=== PATIENT | male | born 1935 | race African-American/Black ===

== ENCOUNTER 2016-11-09 08:27 | Outpatient (CLI) | payer MEDICARE ==
[2016-11-09] MEDS ORDERED: NACL ONE (09:00)
--- NOTE | 2016-11-10 12:01 | Cat Scan Report ---
CT ABDOMEN WITH AND WITHOUT CONTRAST History: Hepatocellular carcinoma Technique: Helical CT before and after IV contrast. Three-phase liver protocol. Comparison: 09/05/16. Findings: The large hypervascular enhancing mass in the right hepatic lobe has increased in size slightly since 09/05/16. The mass has increased from 7.6 x 6.1 cm to 7.8 x 6.5 cm. There are approximately 9 or 10 small rounded satellite nodules surrounding this right hepatic lobe mass. The largest nodule measures 2.0 cm which has increased from 1.7 cm on the previous exam. There appear to be 1 or 2 new subcentimeter enhancing nodules in the right lobe. These masses also demonstrate early washout on the delayed images. There is 20% internal cystic change. No calcifications. The biliary system, pancreas, spleen and adrenal glands are unremarkable. There are multiple bilateral renal cysts. The largest cyst measures 6.7 cm in the mid right kidney. An exophytic cyst from the superior pole of the right kidney measures 4.5 cm. The largest cyst in the left kidney measures 2.4 cm. No renal mass, calcification or hydronephrosis. Multiple small bowel loops demonstrate mild circumferential thickening which could be related to an enteritis. There is no evidence for obstruction, ascites, free air or abscess. Normal appendix. Heart size is normal. The visualized lung bases are clear no suspicious bony lesion. Impression: Mild progression of disease is demonstrated since 09/05/16 exam. The dominant mass in the right hepatic lobe has increased slightly as described. There are 9 or 10 small satellite nodules surrounding the dominant mass. A couple of these appear to be new. The enhancement pattern of this mass is consistent with hepatocellular carcinoma. Mild diffuse small bowel wall thickening suggesting a mild enteritis. Bilateral renal cysts.
== END 2016-11-09 08:28 | disposition home or self-care (01) ==
LOC: CT 08:27
PROVIDERS: ATTEND Radiology Vascular & Interventional Radiology
DX: C22.0 Liver cell carcinoma (principal); N28.1 Cyst of kidney, acquired; D72.829 Elevated white blood cell count, unspecified
CPT/HCPCS: 74170; Q9967

== ENCOUNTER 2016-12-23 05:53 | Observation (INO) | payer MEDICARE ==
[2016-12-23 06:32] LABS: Basophils % (Auto) 0.7 % (0.0-1.8); Eosinophils % (Auto) 6.6 % (0.0-4.3); Hematocrit 40.3 % (35.5-45.6); Hemoglobin 13.6 gm/dl (11.8-15.2); Mean Corpuscular HGB Conc 34 % (32-34); Mean Corpuscular Hemoglobin 32 pg (28-32); Mean Corpuscular Volume 96 fl (84-94); Platelet Count 225 K/mm3 (140-440); Red Blood Count 4.22 M/mm3 (3.65-5.03); Red Cell Distribution Width 14.6 % (13.2-15.2); White Blood Count 8.4 K/mm3 (4.5-11.0)
[2016-12-23 07:05] LABS: BUN/Creatinine Ratio 10.83; INR 0.94 (0.87-1.13); Potassium 4.4 mmol/L (3.6-5.0)
[2016-12-23 07:06] LABS: Partial Thromboplastin Time 30.3 Sec. (24.2-36.6)
[2016-12-23] MEDS ORDERED: D50W (25GM) IV ONE ×2 (07:10→07:30)
[2016-12-23] MEDS ORDERED: XYLOCAINE 1%/ EPI 1:100,000 INFILTRATI ONE (07:10)
[2016-12-23] MEDS ORDERED: NACL 0.9% 1000 ML 1,000 ML ONE (07:10)
[2016-12-23] MEDS ORDERED: NACL 0.9% 500 ML IR ONE (07:10)
[2016-12-23] MEDS ORDERED: SUBLIMAZE ONE (07:10)
[2016-12-23] MEDS ORDERED: VERSED ONE (07:10)
[2016-12-23] MEDS ORDERED: ANCEF/STERILE WATER 2 GM/20 ML 2 GM/20 ML SYRINGE IV ONE (07:11)
[2016-12-23] MEDS ORDERED: ZOFRAN IV PRN (07:25)
[2016-12-23] MEDS ORDERED: BENADRYL ONE (07:31)
--- NOTE | 2016-12-23 07:46 | History and Physical Report ---
History of Present Illness Date of examination: 12/23/16 Date of admission: 12/23/16 Chief complaint: Liver Mass History of present illness: Patient with known large hepatocelluar carcinoma. S/P chemoembolization procedure. Observation for pain control Past History Past Medical History: arthritis, CAD, diabetes, hepatitis, hypertension, other ( gout) Past Surgical History: No surgical history Social history: no significant social history Family history: no significant family history Medications and Allergies Allergies Allergy/AdvReac Type Severity Reaction Status Date / Time No Known Allergies Allergy Unverified 12/23/14 08:34 Home Medications Medication Instructions Recorded Confirmed Last Taken Type Colesevelam [Welchol] 3 tab PO BID 11/25/16 12/23/16 12/22/16 History Entecavir 0.5 mg PO DAILY 11/25/16 12/23/16 12/22/16 History Lisinopril [Zestril TAB] 20 mg PO DAILY 11/25/16 12/23/16 12/22/16 History Mirabegron [Myrbetriq] 25 mg PO QDAY 11/25/16 12/23/16 12/22/16 History Sorafenib Tosylate [Nexavar] 2 tab PO BID 11/25/16 12/23/16 12/22/16 History Colchicine [Colcrys] 0.6 mg PO BID 12/23/16 12/23/16 12/22/16 History Donepezil [Aricept] 5 mg PO QDAY 12/23/16 12/23/16 12/22/16 History Esomeprazole Magnesium [NexIUM] 40 mg PO DAILY 12/23/16 12/23/16 12/22/16 History Finasteride [Proscar] 5 mg PO QDAY 12/23/16 12/23/16 12/22/16 History Insulin Detemir [Levemir Flextouch] 14 units SC QHS 12/23/16 12/23/16 12/22/16 History Linagliptin [Tradjenta] 5 mg PO QDAY 12/23/16 12/23/16 12/22/16 History Tamsulosin [Flomax] 0.4 mg PO QDAY 12/23/16 12/23/16 12/22/16 History Active Meds: Active Medications Colchicine (Colcrys) 0.6 mg PO BID [facility] Colesevelam HCl (Welchol) mg PO BID [facility] Finasteride (Proscar) 5 mg PO QDAY [facility] DOXORUBICIN LC BEADS (Doxorubicin Lc Beads) 2 mls @ 24 mls/hr INTRA-LEDA ONCE ONE Stop: 12/23/16 08:04 Metronidazole (Flagyl 500 Mg/100 Ml) 500 mg in 100 mls @ 200 mls/hr IV PREOP NR Stop: 12/23/16 08:29 Sodium Chloride (Nacl 0.9% 1000 Ml) 1,000 mls @ 125 mls/hr IV DIRECT [facility] Insulin Detemir (Levemir) 14 units SUB-Q QHS [facility] Linagliptin (Tradjenta) 5 mg PO QDAY [facility] Lisinopril (Zestril) 20 mg PO DAILY [facility] Miscellaneous Medication (Donepezil [Aricept]) 5 mg PO QDAY [facility] Miscellaneous Medication (Entecavir [Entecavir]) 0.5 mg PO DAILY [facility] Miscellaneous Medication (Esomeprazole Magnesium [Nexium]) 40 mg PO DAILY [facility] Miscellaneous Medication (Mirabegron [Myrbetriq]) 25 mg PO QDAY [facility] Miscellaneous Medication (Sorafenib Tosylate [Nexavar]) 2 tab PO BID [facility] Miscellaneous Medication (Tamsulosin [Flomax]) 0.4 mg PO QDAY [facility] Morphine Sulfate (Morphine) 2 mg IV Q4H PRN PRN Reason: Pain, Moderate (4-6) Ondansetron HCl (Zofran) 4 mg IV Q4H PRN PRN Reason: Nausea And Vomiting Review of Systems Constitutional: weight loss (2 lbs in the last month), poor appetite Musculoskeletal: arthritis Exam - Constitutional Vitals: Temp Pulse Resp BP Pulse Ox 98.2 F 91 H 16 134/77 96 12/23/16 06:28 12/23/16 06:28 12/23/16 06:28 12/23/16 06:28 12/23/16 06:28 General appearance: Present: no acute distress - EENT Eyes: Present: PERRL ENT: hearing intact, clear oral mucosa - Neck Neck: Present: supple, normal ROM - Respiratory Respiratory effort: normal Respiratory: bilateral: CTA - Extremities Extremities: pulses symmetrical, No edema Peripheral Pulses: within normal limits - Abdominal General gastrointestinal: Present: soft, non-tender, non-distended, normal bowel sounds, hepatomegaly Male genitourinary: Present: deferred - Rectal Rectal Exam: deferred - Integumentary Integumentary: Present: clear, warm, dry - Musculoskeletal Musculoskeletal: gait normal, strength equal bilaterally - Psychiatric Psychiatric: appropriate mood/affect, intact judgment & insight - Neurologic Neurologic: CNII-XII intact, moves all extremities Results - Labs CBC & Chem 7: 12/23/16 06:20 12/23/16 06:20 Labs: Abnormal lab results 12/23/16 12/23/16 Range/Units 06:20 06:20 MCV 96 H (84-94) fl [place] % (Auto) 9.1 H (0.0-7.3) % Eos % (Auto) 6.6 H (0.0-4.3) % Eos # 0.6 H (0.0-0.4) K/mm3 Glucose 64 L (75-100) mg/dL Assessment and Plan 1. Post LC BEAD chemoembolization inta-arterial into liver mass. 2. 23 observation for pain control 3. Discharge in the morning
[2016-12-23] MEDS ORDERED: [UNRECOGNIZED DRUG - OTHER] INTRA-ARTE ONE (08:00)
[2016-12-23] MEDS ORDERED: FLAGYL 500 MG/100 ML 500 MG/100 ML BAG IV NR (08:00)
[2016-12-23] MEDS: NACL 0.9% 1000 ML 1,000 ML IV SCH ×2 (08:05→17:10)
[2016-12-23] MEDS ORDERED: MORPHINE IV PRN (08:30)
[2016-12-23] MEDS ORDERED: PROSCAR PO SCH (10:00)
[2016-12-23] MEDS ORDERED: NON-FORMULARY (Entecavir [Entecavir] 0.5 MG) PO SCH (10:00)
[2016-12-23] MEDS ORDERED: NON-FORMULARY (Mirabegron [Myrbetriq] 25 MG) PO SCH (10:00)
[2016-12-23] MEDS ORDERED: [UNRECOGNIZED DRUG - OTHER] PO SCH (10:00)
[2016-12-23] MEDS ORDERED: NON-FORMULARY (Esomeprazole Magnesium [Nexium] 40 MG) PO SCH (10:00)
[2016-12-23] MEDS ORDERED: TAMSULOSIN 0.4 MG PO SCH (10:00)
[2016-12-23] MEDS ORDERED: TRADJENTA PO SCH (10:00)
[2016-12-23] MEDS ORDERED: ZESTRIL PO SCH (10:00)
[2016-12-23] MEDS ORDERED: DONEPEZIL 5 MG PO SCH (10:00)
[2016-12-23] MEDS: FLOMAX PO SCH (13:44)
[2016-12-23] MEDS: PROTONIX PO SCH (13:46)
--- NOTE | 2016-12-23 14:01 | Admit Criteria Form ---
Admission Criteria Documentation: MEDICAL ONCOLOGY GRG Clinical Indications for Admission to Inpatient Care (Place ' X' for any and all applicable criteria): Hospital admission is needed for appropriate care of the patient because of ANY ONE of the following(1)(2)(3)(4)(5)(6)(7)(8)(9): [] I. Chemotherapy or other treatments with expected profound toxicity, prolonged marrow suppression, and inpatient support needed (eg, acute leukemia, advanced lymphoma)A [] II. Allogeneic bone marrow or peripheral blood stem cell transplantation needed for ANY ONE of the following: [] a) Hodgkin lymphoma and ANY ONE of the following(8)(9): [] i) Relapse from primary treatment in less than 12 months [] ii) Refractory to primary treatment [] iii) Relapse after autologous transplant [] iv) Multiple relapses [] b) Non-Hodgkin lymphoma and ALL of the following(10)(11) [] i) Recurrent disease [] ii) Age younger than 50 years [] iii) HLA-identical sibling donor available [] c) Acute myelogenous leukemia and ALL of the following(12)(13)(14): [] i) Appropriate clinical situation, as indicated by ANY ONE of the following: [] 1) After first complete remission for ANY ONE of the following B(15): [] A. Intermediate-risk patient, based upon cytogenetics, WBC count, and proportion of bone marrow blasts [] B. High-risk patient, based upon cytogenetics, WBC count , and proportion of bone marrow blasts [] 2) After failure to achieve complete remission following 2 induction courses with high-dose cytosine arabinoside [] 3) After first relapse or second complete remission [] 4) Patient with refractory disease (greater than 4% marrow blasts at time of transplant) [] 5) Acute promyelocytic leukemia patients unable to achieve molecular remission(14) [] ii) Age 60 years or younger [] iii) Appropriate donor genetic match [] d) Chronic myelogenous leukemia, imatinib resistant(16)(17) [] e) Acute lymphocytic or lymphoblastic leukemia and ANY ONE of the following (18)(19): [] i) Primary refractory disease (ie, failure to achieve first complete remission) and matched sibling donor available [] ii) First complete remission and ALL of the following: [] 1) Appropriate donor genetic match [] 2) High-risk prognostic factor, as indicated by ANY ONE of the following: [] A. WBC count at time of diagnosis greater than 30,000/mm3 (30 x109/L) [] B. More than 4 weeks needed to induce remission [] C. Poor-risk cytogenetic abnormalities present [] D. Age older than 35 years [] iii) Second complete remission and ANY ONE of the following: [] 1) Adult patient who relapses after primary chemotherapy [] 2) Child who relapses and ANY ONE of the following: [] A. HLA-matched family donor during first year after diagnosis [] B. Matched unrelated donor during first year after diagnosis [] C. Matched sibling donor 1 to 4 years after diagnosis [] f) Chronic lymphocytic leukemia and ALL of the following(20)(21): [] i) Age 70 years or younger [] ii) Appropriate clinical situation, as indicated by ANY ONE of the following: [] 1) Patient failed to respond to purine analogue combination therapy. [] 2) Patient relapsed from purine analogue combination therapy. [] 3) Patient has poor prognosis based on high-risk cytogenetics. [] g) Waldenstrom macroglobulinemia and ALL of the following(24)(25): [] i) Recurrent disease after first-line chemotherapy (eg, rituximab ) [] ii) Appropriate donor genetic match [] iii) Treatment given as part of clinical trial [] h) Multiple myeloma, and HLA-matched donor available(22)(23) [] i) Aplastic anemia and ALL of the following(26)(27): [] i) Acquired severe aplastic anemia, as indicated by ALL of the following: [] 1) Marrow cellularity below 25% [] 2) Severely abnormal cell counts, as indicated by 2 or MORE of the following: [] A. Absolute neutrophil count less than 500/mm3 (0.5 x109/L ) [] B. Absolute reticulocyte count less than 20,000/mm3 (20 x109/L) [] C. Platelet count less than 20,000/mm3 (20 x109/L) [] ii) Clinical situation includes ANY ONE of the following: [] 1) First-line therapy and ANY ONE of the following: [] A. Any age with syngeneic donor (eg, identical twin) available [] B. Age 55 years or younger with matched sibling donor [] C. Age 21 years or younger with available molecularly matched (allele-level) unrelated donor [] 2) Second-line therapy and ALL of the following: [] A. Failed first-line immunosuppressive therapy [] B. Available unrelated donor with HLA-matching facilitated by DNA-based typing [] j) Myelodysplastic syndrome and ANY ONE of the following(12)(18)(29) : [] i) Hypocellular marrow and ANY ONE of the following: [] 1) Matched related donor available [] 2) No matched related donor available, and ALL of the following : [] A. Matched unrelated donor available [] B. Appropriate clinical situation, as indicated by ANY ONE of the following: [] a. No history of chemotherapy [] b. No complete remission after chemotherapy [] ii) Myelodysplastic syndrome with marrow blasts 10% or greater and ANY ONE of the following: [] 1) Matched sibling donor available, and patient has achieved complete or partial remission after chemotherapy [] 2) No matched sibling donor available and ALL of the following : [] A. Matched unrelated donor available [] B. No complete remission after chemotherapy [] k) Myeloid sarcoma and ANY ONE of the following(30): [] i)HLA-matched related donor [] ii)Matched unrelated donor [] l) Severe combined immune deficiency(31)(32) [] m) Sickle cell disease and ALL of the following(33)(34)(35): [] i)HLA-identical sibling [] ii)Age younger than 16 years [] n) Genetic disease and ALL of the following(34)(36): [] i)Appropriate donor genetic match [] ii)Appropriate clinical condition, including ANY ONE of the following: [] 1) Class I or II beta thalassemia major(37) [] 2) Krabbe disease [] 3) Blackfan-Chantelle anemia [] 4) [place] syndrome [] 5) Fanconi anemia(38) [] 6) Paroxysmal nocturnal hemoglobinuria [] 7) Hurler syndrome(39) [] o) Familial hemophagocytic lymphohistiocytosis(40)(41) [] p) Langerhans cell histiocytosis refractory to chemotherapy D(40) [] q) Autologous bone marrow or peripheral blood stem cell transplant needed for ANY ONE of the following [E]: [] r) Hodgkin lymphoma and ANY ONE of the following (8)(9)(45): [] i)First relapse in chemosensitive disease [] ii)Partial remission after radiotherapy for isolated lesions []iii)Primary refractory disease [] s) Non-Hodgkin lymphoma and ALL of the following(10)(11)(46): [] i)Chemosensitive tumor [] ii)Appropriate clinical situation, as indicated by ANY ONE of the following: [] 1) At time of diagnosis (eg, mantle cell lymphoma) [] 2) Following induction therapy (eg, T-cell lymphoma)(48) [] 3) First complete remission (eg, poor-risk patients with diffuse large B-cell lymphoma) [] 4) Refractory disease (eg, diffuse large B-cell lymphoma) [] 5) Relapse and second or greater complete remission [] t) Acute myelogenous leukemia and ALL of the following(11)(14): [] i)Age 60 years or younger [] ii)Appropriate leukemia cell type, as indicated by ANY ONE of the following: [] 1) Acute myelocytic leukemia [] 2) Acute promyelocytic leukemia [] iii)Appropriate clinical situation, as indicated by ANY ONE of the following: [] 1) Second complete remission [] 2) As part of clinical trial after first complete remission [] iv) HLA-compatible donor unavailable, or allogeneic transplant not feasible due to other factors [] u) Chronic lymphocytic leukemia and ALL of the following F(21)(47): [] i) Age 65 years or younger [] ii) HLA-compatible donor unavailable, or allogeneic transplant not feasible due to other factors [] iii) Appropriate clinical situation, as indicated by ANY ONE of the following: [] 1) Relapsed disease [] 2) Complete remission [] 3) Strong partial remission [] 4) As part of clinical trial for previously untreated high- risk disease [] v) Multiple myeloma and ALL of the following(48): [] i)Active myeloma [] ii)No serious comorbidities [] iii)Tumor is chemosensitive. [] w) Myelodysplastic syndrome and ALL of the following(12): [] i)Allogeneic transplant not feasible because HLA-compatible donor unavailable or because of other factors [] ii)Complete remission achieved [] x) Germ cell tumors of testicles or ovaries and ALL of the following(50 )(51): [] i)After second relapse [] ii)Chemosensitive tumor [] iii)As part of approved clinical study or protocol [] y) Neuroblastoma and ALL of the following(52)(53): [] i)Appropriate clinical stage, as indicated by ANY ONE of the following: [] 1) Stage 4 neuroblastoma [] 2) High-risk stage 3 neuroblastoma [] ii)No disease progression after initial course of chemotherapy [] z) Bellamy and soft issue sarcoma and ALL of the following(54)(55): [] i)Age 18 years or older [] ii)Appropriate clinical situation, as indicated by ANY ONE of the following: [] 1) Tumors greater than 5 cm in diameter [] 2) Extensive local or distant recurrence [] 3) Metastatic disease [] 4) Relapsed or progressive disease [] iii)Complete or partial remission following induction chemotherapy [] III.Radioactive implant treatments needing inpatient environment (eg, cervical radiation implants) G(56) [] IV.High-risk febrile neutropenia [H] as indicated by ANY ONE of the following (57): [] a) Profound neutropenia anticipated to extend for more than 7 days [] b) Hemodynamic instability [] c) Hypoxemia [] d) Tachypnea [] e) Altered mental status [] f) New onset abdominal pain [] g) New onset vomiting or diarrhea [] h) Oral or gastrointestinal mucositis that interferes with swallowing or causes severe diarrhea [] i) Pneumonia [] j) Evidence of significant focal infection (eg, cellulitis, central line or catheter infection, perirectal abscess) [] k) Leukemia or lymphoma induction therapy [] l) Bone marrow transplant patient [] m) Renal insufficiency (eg, GFR of less than 30 mL/min/1.73m2 (0.5 mL/ sec/1.73m2) [] n) Severe liver dysfunction (transaminase levels greater than 5 times normal) [] o) Platelet count less than 50,000/mm3 (50 x109/L)(58) [] p) [employer] Association for Supportive Care in Cancer (MASCC) Risk Index score of < 21 [J] (58) [] V.High-risk low platelet count as indicated by ANY ONE of the following(60)( 61): [] a) Severe or life-threatening bleeding (eg, intracranial, major gastrointestinal, or extensive mucosal bleeding), with any reduced platelet count [] b) Platelet count less than 20,000/mm3 (20 x109/L) with any active bleeding [] c) Platelet count less than 10,000/mm3 (10 x109/L) with minor purpura or petechiae [] d) Platelet count less than 5000/mm3 (5 x109/L) [] e) Low platelet count with hemolytic anemia [] .Severe anemia indicated by ANY ONE of the following(62)(63): [] a) Altered mental status [] b) Chest pain [] c) Exertional dyspnea [] d) Syncope [] e) Other findings suggesting inadequate perfusion [] f) Treatment with transfusion or volume replacement is ineffective at resolving ANY ONE of the following: [] i)Tachycardia for age [] ii)Orthostatic vital sign changes as indicated by ANY ONE of the following(64): [] 1) Fall in SBP of 20 mm Hg or more 1 to 3 mins after pt sits or stands from recumbent position [] 2) Fall in DBP of 10 mm Hg or more 1 to 3 mins after pt sits or stands from recumbent position [] VII.High-risk infection problems as indicated by ANY ONE of the following(1 )(2)(3)(4): [] a) Suspected sepsis [] b) Catheter-related infection requiring inpatient monitoring and testing [] c) Fever unresponsive to outpatient antibiotic therapy for 72 hours [] d) Fever with neurologic abnormalities [] e) Fever with severe skin abnormalities, including ANY ONE of the following: [] i)Rapidly progressing cellulitis [] ii)Herpes zoster or other viral skin infection that is rapidly progressing or disseminated [] iii)Opportunistic skin infections, including aspergillosis or candidiasis [] iv)Ecthyma gangrenosum L [] v)Significant chemotherapy infusion extravasation complications (eg , tissue necrosis) [] VIII.Severe thrombotic complications; examples include(66): [] a) Superior vena cava syndrome (new) [] b) Cerebral thrombosis (new) [] c) Thrombotic endocarditis or microangiopathy [] d) Leukostasis [] IX.Tumor lysis syndrome M(67) [] X.Severe electrolyte abnormalities indicated by ALL of the following(68)(69)( 70): [] a) Electrolytes and associated findings are not as expected for patient baseline or acceptable treatment effects. [] b) Severe abnormalities indicated by ANY ONE of the following: [] i)Sodium less than 130 mEq/L (mmol/L) (new) [] ii)Sodium less than 135 mEq/L (mmol/L) with ANY ONE of the following: [] 1) Uncorrectable (to near normal or chronic baseline) after trial of outpatient and emergency treatment. [] 2) Altered mental status [] 3) Seizures [] 4) Severe medical etiology requiring inpatient management (eg, heart failure, hypovolemia) [] iii)Sodium greater than 155 mEq/L (mmol/L) [] iv)Sodium greater than 150 mEq/L (mmol/L) with ANY ONE of the following: [] 1) Uncorrectable (to near normal or chronic baseline) with outpatient and emergency treatment [] 2) Altered mental status [] 3) Seizures [] 4) Severe medical etiology (eg, hypovolemia, diabetes insipidus) [] v)Potassium less than 2.5 mEq/L (mmol/L) despite outpatient and emergency treatment [] vi)Potassium less than 3 mEq/L (mmol/L) with ANY ONE of the following: [] 1) Weakness [] 2) Cardiac abnormality (eg, arrhythmia, conduction disturbance) [] 3) Cardiac ischemia [] 4) Ileus [] 5) Ongoing medical cause requiring inpatient management (eg, acute renal wasting or SIADH) [] 6) Other severe symptoms [] vii)Potassium greater than 6.5 mEq/L (mmol/L) [] viii)Potassium greater than 5 mEq/L (mmol/L) with ANY ONE of the following: [] 1) Uncorrectable (to near normal or chronic baseline) with outpatient and emergency treatment [] 2) Severe ECG findings N [] 3) Acute worsening of renal failure (creatinine greater than 2.5 mg/dL (221 micromoles/L) or significant elevation for age and size) [] 4) Severe weakness [] 5) Severe medical etiology (eg, hemolysis, infection, drug overdose) [] ix)Calcium less than 7 mg/dL (1.75 mmol/L) despite outpatient and emergency treatment(77) [] x)Calcium less than 8 mg/dL (2 mmol/L) with significant symptoms or findings; examples include: [] 1) Altered mental status [] 2) Muscle spasms [] 3) Seizures [] 4) Breathing difficulty [] 5) Cardiac abnormality (eg, arrhythmia or conduction disturbance) [] xi)Calcium greater than 14 mg/dL (3.5 mmol/L)(72) [] xii)Calcium greater than 12 mg/dL (3 mmol/L) with ANY ONE of the following(72): [] 1) Uncorrectable (to near normal or chronic baseline) with outpatient and emergency treatment [] 2) Significant dehydration or hypovolemia as indicated by ALL of the following(70)(73)(74): [] A. Not resolved with initial treatments [] B. Clinically significant dehydration as indicated by ANY ONE of the following: [] a. Vomiting refractory to outpatient treatment (ie, precluding oral rehydration) [] b. Inability to drink [] c. Hypernatremia or other electrolyte abnormality unable to be corrected with outpatient and emergency treatment [] d. Failure to remain hydrated with outpatient therapy [] e. Reduced urine output [] f. Hypotension [] g. Serious cause for dehydration requiring acute hospitalization (eg, bowel obstruction, increased intracranial pressure, infectious cause) [] h. Child with ANY ONE of the following(75): [] Severe abdominal tenderness [] Adequate care not available at home [] Severe dehydration (greater than 9% loss of body weight) [] 3) Significant symptoms or findings; examples include: [] A. Altered mental status [] B. Cardiac abnormality (eg, arrhythmia, conduction disturbance) [] C. Malignant etiology requiring inpatient treatment [] xiii)Phosphorus less than 1 mg/dL (0.32 mmol/L) [] xiv)Phosphorus less than 1.5 mg/dL (0.48 mmol/L) with ANY ONE of the following: [] 1) Patient unresponsive to outpatient and emergency treatment [] 2) Significant symptoms or findings; examples include: [] A. Weakness [] B. Altered mental status [] C. Breathing difficulty [] D. Seizures [] E. Rhabdomyolysis [] xv)Phosphorus greater than 10 mg/dL (3.2 mmol/L) [] xvi)Phosphorus greater than 4.5 mg/dL (1.45 mmol/L) (new) with ANY ONE of the following: [] 1) Severe medical etiology (eg, crush injury, acute renal failure) [] 2) Associated hypocalcemia with significant findings; examples include: [] A. Neurologic symptoms [] B. Altered mental status [] C. Muscle spasms [] D. Seizures [] E. Breathing difficulty [] F. Cardiac abnormality (eg, arrhythmia, conduction disturbance) [] xvii)Magnesium less than 1 mg/dL (0.41 mmol/L) []xviii)Magnesium less than 1.5 mg/dL (0.62 mmol/L) with ANY ONE of the following: [] 1) Patient unresponsive to outpatient and emergency treatment [] 2) Associated hypocalcemia with significant findings; examples include: [] A. Altered mental status [] B. Muscle spasms [] C. Seizures [] D. Breathing difficulty [] E. Cardiac abnormality (eg, arrhythmia, conduction disturbance) [] 3) Associated hypokalemia (potassium less than 3 mEq/L (mmol/L) ) with risk of arrhythmia [] xix)Magnesium greater than 4 mEq/L (2 mmol/L) [] xx)Magnesium greater than 2.5 mEq/L (1.25 mmol/L) with significant symptoms or findings;examples include: [] 1) Weakness [] 2) Altered mental status [] 3) Cardiac abnormality (eg, arrhythmia, conduction disturbance) [] 4) Breathing difficulty [] 5) Severe medical etiology (eg, renal failure, hypovolemia) [] xxi)Uric acid greater than 20 mg/dL (1190 micromoles/L)(4) [] xxii)Uric acid greater than 8 mg/dL (476 micromoles/L) with significant symptoms or findings of tumor lysis syndrome; examples include(4): [] 1) Creatinine greater than 1.5 times upper limit of normal [] 2) Cardiac abnormality (eg, arrhythmia, conduction disturbance) [] 3) Seizure [] XI.Conditions causing hyperviscosity syndrome (eg, leukemia, myeloma) with high risk indicators, including ANY ONE of the following(76)(77): [] a) Hematocrit greater than 60% (0.60) [] b) Elevated platelet count associated with thrombosis, bleeding, or life-threatening organ dysfunction [] c) Severe signs or symptoms from elevated red cell, white cell, or protein level, including ANY ONE of the following: [] i)Mental status change [] ii)Dyspnea [] iii)Chest x-ray infiltrate [] iv)Visual changes [] v)Retinal abnormalities [] vi)Neuromuscular symptoms [] vii)Suspected ischemia or thrombosis []viii)Bleeding [] XII.Severe gastrointestinal complications as indicated by ANY ONE of the following(78): [] a) Severe mucositis requiring continuous IV fluids (or parenteral nutrition) and IV narcotics(79) [] b) Nausea, vomiting, or diarrhea that is uncontrollable at any other level of care(80) [] c) Severe oral candidiasis that requires inpatient management [] d) Severe gastrointestinal bleeding [] e) Significant abdominal pain with suspicion of colitis (eg, neutropenic enterocolitis, Clostridium difficile associated diarrhea) [X] XIII. Severe pain requiring acute inpatient management as indicated by ALL of the following(81)(82)(83): [] a) Continuous or frequent (eg, every 2 to 4 hours) parenteral analgesics required [X] b) Rapid improvement expected from tx or acute intervention (eg, surgery, anesthesia procedure) P [] XIV. Pathologic fracture with major instability (spinal, pelvis, hip, or femur fracture)(85)(86) [] XV. Severe neurologic findings as indicated by ANY ONE of the following : [] a) Intracranial hypertension (eg, papilledema, CT scan findings)(106 ) [] b) Altered mental status (new) [] c) Spinal cord compression (new or progressing)(85)(86) [] d) Seizures (new or uncontrolled) [] e) Acute neurologic deficits [] XVI. Severe allergic or cardiopulmonary toxicity from treatment (Use relevant Optimal Recovery Guideline or General Recovery Care Criteria as appropriate) [] XVII. Severe malignant effusions as indicated by ANY ONE of the following : [] a) Recurrent malignant pleural effusion requiring chest tube drainage and pleural space treatment Q(87)(88) [] b) Malignant ascites with severe symptoms, including ANY ONE of the following: [] i) Respiratory compromise [] ii) Abdominal pain or discomfort [] iii) Uncontrollable nausea and vomiting [] iv) Fever [] c) Pericardial effusion causing hemodynamic instability(89) [] XVIII. Severe tumor-related complications; examples include: [] a) Bronchial obstruction problems, such as postobstructive pneumonia or respiratory distress (not responsive to outpatient management) [] b) Acute tracheoesophageal fistula [] c) Airway or pharyngeal obstruction not treatable with outpatient procedure or management [] d) Acute intestinal obstruction [] e) Urinary obstruction not treatable with outpatient procedure or management [] f) Vascular obstruction not treatable with outpatient procedure or management [] XIX. Inpatient palliative care needed. R(90)(91)(92) ( Use Inpatient Palliative Care Criteria) [] XX. Medical Oncology problem and ALL of the following: [] a) Symptom or finding for which emergency and observation care have failed or are not considered appropriate (Use General Criteria: Observation Care Criteria as appropriate) [] b) Presence of ANY ONE of the following: [] i) A General Admission Criteria [] ii) A Pediatric General Admission Criteria The original [facility] [employer] content created by [facility] [employer] [employer] has been revised. The portions of the content which have been revised are identified through the use of italic text or in bold, and [facility] has neither reviewed nor approved the modified material. All other unmodified content is copyright [facility] [employer]. Please see references footnoted in the original [facility] edition 2016 Admission Criteria Met: Yes
[2016-12-23] MEDS ORDERED: LEVEMIR SUB-Q SCH (22:00)
[2016-12-23] MEDS: COLCRYS PO SCH ×2 (22:00→22:05)
[2016-12-23] MEDS ORDERED: ARICEPT PO SCH (22:00)
[2016-12-23] MEDS: WELCHOL PO SCH ×2 (22:00→22:05)
--- NOTE | 2016-12-24 09:56 | Discharge Summary ---
Providers - Providers Date of Admission: 12/23/16 07:16 Date of discharge: 12/24/16 Attending physician: SARAI VORA Primary care physician: DEBORAH ANDERSON Hospitalization Reason for admission: Pain control following chemoembolization for Liver CA Condition: Good Procedures: LC BEAD Chemoembolization Hospital course: Unremarkable Disposition: DC-01 TO HOME OR SELFCARE Core Measure Documentation - Palliative Care Palliative Care/ Comfort Measures: Not Applicable - Core Measures Any of the following diagnoses?: none Exam - Physical Exam Narrative exam: Patient resting comfortably with no new complaints. Tolerated oral feedings. No pain or nausea. Right groin puncture site clean and dry. Removed bandage. No hematoma. Strong pulse - Constitutional Vitals: Temp Pulse Resp BP Pulse Ox 98.7 F 98 H 18 138/74 98 12/24/16 06:13 12/24/16 06:13 12/24/16 06:13 12/24/16 06:13 12/24/16 06:13 General appearance: Present: no acute distress - EENT Eyes: Present: PERRL ENT: hearing intact, clear oral mucosa - Neck Neck: Present: supple, normal ROM - Respiratory Respiratory effort: normal - Cardiovascular Heart Sounds: Present: S1 & S2. Absent: rub, click - Extremities Extremities: pulses symmetrical, No edema - Abdominal General gastrointestinal: Present: soft, non-tender Male genitourinary: Present: normal - Rectal Rectal Exam: deferred Plan Activity: no restrictions Weight Bearing Status: Full Weight Bearing Diet: diabetic Follow up with: DEBORAH ANDERSON CHI, MD [Primary Care Provider] - 7 Days SARAI VORA MD [Staff Physician] - 01/26/17 (Office will call next week to set up appointment as well as follow CT scan in one month)
[2016-12-24 10:12] VITALS: BP 134/74
--- NOTE | 2016-12-24 10:12 | Operative Report ---
Operative Report Operative Report: Procedure: LC Bead Chemoembolizaton Indication: Hepatocellular CA. History: Patient has large right hepatic lobe HCC. This is the second round of doxorubicin LC-bead chemoembolization Physcian: Judah Anesthesia: Moderate IV conscious sedation Contrast: 30 cc Isovue Technique: Following informed and written consent. The patient was placed supine on the angiographic table. The patient was given 2gm Ancef IV and 500 mg Flagyl IV as prophylactic antibiotics prior to the procedure. The right groin was prepped and draped in the usual sterile fashion. Lidocaine was used for local anesthetic. Using ultrasound guidance, the right common femoral artery was accessed using a micropuncture access set and then a 5 Fr vascular sheath inserted. A glide wire and 5 Fr C-2 glidecath was advanced into the abdominal aorta and the catheter negotiated into the right proper hepatic artery and digital subtraction angiography performed. The catheter was then advanced beyond the cystic artery and infusion of the 100-300 micron particles which were pre-loaded by pharmacy with 50 mg of doxorubicin (which were mixed with 15 cc of contrast and saline) was performed under direct flouroscopic visualization. Following completion of the infusion a post DSA angiogram was obtained and then the catheter removed. The sheath was then removed and manual compression applied until adequate hemostasis was achieved. The patient tolerated the procedure well and then admitted for 23 observation for adequate hydration and pain control. Findings: There is evidence for neovascularization and splaying of the intrahepatic branches of the hepatic artery due to the presence of the large right lobe liver tumor. In comparison to the previous study there is less overall neovascularization. Following infusion there was pruning of the distal vessels with patentency of the majority of the branches. Impression: Successful infusion of LC beads and doxorubicin as described above.
[2016-12-24] MEDS: FLOMAX PO SCH (10:13)
[2016-12-24] MEDS: PROTONIX PO SCH (10:15)
== END 2016-12-24 10:50 | disposition home or self-care (01) ==
LOC: CATHLABREC 05:53 → CC2 07:16
PROVIDERS: ADMIT Radiology Vascular & Interventional Radiology; ATTEND Radiology Vascular & Interventional Radiology
DX: C22.0 Liver cell carcinoma (principal); I25.10 Atherosclerotic heart disease of native coronary artery without angina pectoris; I10 Essential (primary) hypertension; E11.9 Type 2 diabetes mellitus without complications
CPT/HCPCS: 36415; 37243; 75726; 80048; 82962; 85025; 85610; 85730; 96374; 96549; C1769; G0378; J0690; J1200; J2250; J2270; J3010; J7030; J9000; J1818; Q9967

== ENCOUNTER 2017-01-23 05:45 | Outpatient (CLI) | payer MEDICARE ==
[2017-01-23] MEDS ORDERED: NACL ONE (07:04)
--- NOTE | 2017-01-23 09:19 | Cat Scan Report ---
CT ABDOMEN WITH AND WITHOUT CONTRAST History: Hepatocellular carcinoma. Technique: Helical CT before and after IV contrast. Sagittal and coronal reformatted images. Findings: Compared to 11/09/16. The heterogeneously enhancing right hepatic lobe mass has increased from 7.8 x 6.5 x 7.2 cm and now measures 8.9 x 6.8 x 7.1 cm. This mass demonstrates arterial enhancement with early washout on the delayed images consistent with hepatocellular carcinoma. There are several satellite nodules surrounding the dominant right hepatic lobe mass which have increased in size by 10-20%. There is a new 1.6 cm focus of enhancement in the posterior right hepatic lobe. The hepatic veins and portal venous system remains patent. The biliary system, pancreas, spleen and adrenal glands are unremarkable. No ascites, varicosities or bulky adenopathy. There are a few borderline left mesenteric lymph nodes which demonstrate mild enhancement with the largest measuring 1.5 cm in long axis. It is unclear if this is related to metastatic disease or reactive lymph nodes. Multiple bilateral renal cysts are unchanged in size and number. No hydronephrosis or renal mass. The aorta is normal caliber. No aneurysm or dissection. There is no evidence for bowel obstruction. There is moderate circumferential thickening of the duodenum which could be related to peptic ulcer disease. No perforated ulcer or free air. These findings are unchanged. The visualized lung bases are clear. Heart size is within normal limits. The bony structures are mildly demineralized with degenerative change. No fracture or suspicious bony lesion. Impression: Mild progression of disease is demonstrated in the liver as outlined above. Questionable left mesenteric lymph nodes. Findings suggestive of duodenitis or peptic ulcer disease. See above. Multiple bilateral renal cysts, unchanged.
== END 2017-01-23 05:46 | disposition home or self-care (01) ==
LOC: CT 05:45
PROVIDERS: ATTEND Radiology Vascular & Interventional Radiology
DX: C22.0 Liver cell carcinoma (principal); N28.1 Cyst of kidney, acquired; D63.8 Anemia in other chronic diseases classified elsewhere; Z87.891 Personal history of nicotine dependence
CPT/HCPCS: 36415; 74170; 82565; 84520; Q9967

== ENCOUNTER 2017-06-24 17:05 | Emergency (ER) | payer MEDICARE ==
[2017-06-24 20:27] LABS: Basophils # (Auto) 0.1 K/mm3 (0.0-0.1); Basophils % (Auto) 0.4 % (0.0-1.8); Eosinophils % (Auto) 0.2 % (0.0-4.3); Hemoglobin 12.8 gm/dl (11.8-15.2); Lymphocytes # (Auto) 2.4 K/mm3 (1.2-5.4); Lymphocytes % (Auto) 19.3 % (13.4-35.0); Mean Corpuscular HGB Conc 33 % (32-34); Mean Corpuscular Hemoglobin 32 pg (28-32); Mean Corpuscular Volume 97 fl (84-94); Monocytes # (Auto) 1.6 K/mm3 (0.0-0.8); Monocytes % (Auto) 12.7 % (0.0-7.3); Platelet Count 244 K/mm3 (140-440); Red Blood Count 4.02 M/mm3 (3.65-5.03); Red Cell Distribution Width 14.3 % (13.2-15.2)
[2017-06-24 20:37] LABS: Bilirubin,Urine NEG (Negative); Blood,Urine NEG (Negative); Color,Urine Yellow (Yellow); Nitrite,Urine NEG (Negative); Protein,Urine <15 mg/dL mg/dL (Negative); RBC,Urine < 1.0 /HPF (0.0-6.0); Urobilinogen,Urine < 2.0 mg/dL (<2.0)
[2017-06-24 20:39] LABS: WBC,Urine < 1.0 /HPF (0.0-6.0)
[2017-06-24 20:46] LABS: Albumin 3.6 g/dL (3.9-5); Calcium 8.8 mg/dL (8.4-10.2)
[2017-06-25] MEDS ORDERED: ZOFRAN IV ONE (00:44)
[2017-06-25] MEDS ORDERED: MORPHINE IV ONE (00:44)
--- NOTE | 2017-06-25 00:49 | Emergency Department Report ---
ED Abdominal Pain HPI - General Chief Complaint: Abdominal Pain Stated Complaint: RIGHT SIDE ABDOMINAL PAIN Time Seen by Provider: 06/25/17 00:35 Source: patient Mode of arrival: Ambulatory Limitations: No Limitations - History of Present Illness Initial Comments: Patient is a 82 years old male history of hepatocellular carcinoma, presented to the ER with right upper quadrant pain. Patient stated that the pain is been going on for a while but for the last 2-3 days getting worse. Patient denied any fever, nausea or vomiting. No diarrhea. MD Complaint: abdominal pain -: Gradual Location: RUQ Radiation: none Migration to: no migration Severity: severe Severity scale (0 -10): 10 Quality: sharp Consistency: constant Improves With: nothing Worsens With: nothing Associated Symptoms: denies other symptoms. denies: nausea, vomiting, diarrhea , fever, chills - Related Data Home Medications Medication Instructions Recorded Confirmed Last Taken Colesevelam [Welchol] 3 tab PO BID 11/25/16 12/23/16 12/22/16 Entecavir 0.5 mg PO DAILY 11/25/16 12/23/16 12/22/16 Lisinopril [Zestril TAB] 20 mg PO DAILY 11/25/16 12/23/16 12/22/16 Mirabegron [Myrbetriq] 25 mg PO QDAY 11/25/16 12/23/16 12/22/16 Sorafenib Tosylate [Nexavar] 2 tab PO BID 11/25/16 12/23/16 12/22/16 Colchicine [Colcrys] 0.6 mg PO BID 12/23/16 12/23/16 12/22/16 Donepezil [Aricept] 5 mg PO QDAY 12/23/16 12/23/16 12/22/16 Esomeprazole Magnesium [NexIUM] 40 mg PO DAILY 12/23/16 12/23/16 12/22/16 Finasteride [Proscar] 5 mg PO QDAY 12/23/16 12/23/16 12/22/16 Insulin Detemir [Levemir Flextouch] 14 units SC QHS 12/23/16 12/23/16 12/22/16 Linagliptin [Tradjenta] 5 mg PO QDAY 12/23/16 12/23/16 12/22/16 Tamsulosin [Flomax] 0.4 mg PO QDAY 12/23/16 12/23/16 12/22/16 Previous Rx's Medication Instructions Recorded Last Taken Type Ondansetron [Zofran Odt] 4 mg PO Q8HR PRN #14 tab.rapdis 06/25/17 Unknown Rx oxyCODONE /ACETAMINOPHEN [Percocet 1 tab PO Q6HR PRN #14 tablet 06/25/17 Unknown Rx 5/325] Allergies Allergy/AdvReac Type Severity Reaction Status Date / Time No Known Allergies Allergy Unverified 12/23/14 08:34 ED Review of Systems ROS: Stated complaint: RIGHT SIDE ABDOMINAL PAIN Other details as noted in HPI Comment: All other systems reviewed and negative Constitutional: denies: chills, fever Respiratory: denies: cough, shortness of breath, SOB with exertion Cardiovascular: palpitations. denies: chest pain, dyspnea on exertion, orthopnea, edema, syncope, paroxysmal nocturnal dyspnea Gastrointestinal: abdominal pain. denies: nausea, vomiting, diarrhea, constipation, hematemesis, melena, hematochezia Genitourinary: denies: urgency, dysuria, frequency, hematuria Neurological: denies: headache, weakness, numbness, paresthesias ED Past Medical Hx - Past Medical History Hx Hypertension: Yes Hx Diabetes: Yes Hx GERD: Yes Hx Liver Disease: Yes (CT shows possible mass, HEP B) Hx of Cancer: Yes (Liver) Hx Sickle Cell Disease: No Hx Kidney Stones: Yes Hx HIV: No Additional medical history: high cholesterol; hep. B - Surgical History Additional Surgical History: "abdominal surgery" - Social History Smoking Status: Never Smoker Substance Use Type: None - Medications Home Medications: Home Medications Medication Instructions Recorded Confirmed Last Taken Type Colesevelam [Welchol] 3 tab PO BID 11/25/16 12/23/16 12/22/16 History Entecavir 0.5 mg PO DAILY 11/25/16 12/23/16 12/22/16 History Lisinopril [Zestril TAB] 20 mg PO DAILY 11/25/16 12/23/16 12/22/16 History Mirabegron [Myrbetriq] 25 mg PO QDAY 11/25/16 12/23/16 12/22/16 History Sorafenib Tosylate [Nexavar] 2 tab PO BID 11/25/16 12/23/16 12/22/16 History Colchicine [Colcrys] 0.6 mg PO BID 12/23/16 12/23/16 12/22/16 History Donepezil [Aricept] 5 mg PO QDAY 12/23/16 12/23/16 12/22/16 History Esomeprazole Magnesium [NexIUM] 40 mg PO DAILY 12/23/16 12/23/16 12/22/16 History Finasteride [Proscar] 5 mg PO QDAY 12/23/16 12/23/16 12/22/16 History Insulin Detemir [Levemir Flextouch] 14 units SC QHS 12/23/16 12/23/16 12/22/16 History Linagliptin [Tradjenta] 5 mg PO QDAY 12/23/16 12/23/16 12/22/16 History Tamsulosin [Flomax] 0.4 mg PO QDAY 12/23/16 12/23/16 12/22/16 History Ondansetron [Zofran Odt] 4 mg PO Q8HR PRN #14 tab.rapdis 06/25/17 Unknown Rx oxyCODONE /ACETAMINOPHEN [Percocet 1 tab PO Q6HR PRN #14 tablet 06/25/17 Unknown Rx 5/325] ED Physical Exam - General Limitations: No Limitations General appearance: alert, in distress (secondary to pain) - Head Head exam: Present: atraumatic, normocephalic, normal inspection - Eye Eye exam: Present: normal appearance, PERRL - ENT ENT exam: Present: normal exam, normal orophraynx, mucous membranes moist - Neck Neck exam: Present: normal inspection, full ROM. Absent: tenderness, meningismus, lymphadenopathy, thyromegaly - Respiratory Respiratory exam: Present: normal lung sounds bilaterally. Absent: respiratory distress, wheezes, rales, rhonchi, stridor, chest wall tenderness, accessory muscle use, decreased breath sounds, prolonged expiratory - Cardiovascular Cardiovascular Exam: Present: regular rate, tachycardia, normal heart sounds - GI/Abdominal GI/Abdominal exam: Present: soft, tenderness (right upper quadrant tenderness), normal bowel sounds. Absent: guarding, rebound, rigid, organomegaly, mass, bruit, pulsatile mass, hernia - Extremities Exam Extremities exam: Present: normal inspection, full ROM, normal capillary refill - Back Exam Back exam: Present: normal inspection, full ROM. Absent: tenderness, CVA tenderness (R), CVA tenderness (L), muscle spasm, paraspinal tenderness, vertebral tenderness - Neurological Exam Neurological exam: Present: alert, oriented X3, CN II-XII intact, normal gait - Skin Skin exam: Present: warm, intact, normal color ED Course Vital Signs 06/24/17 06/25/17 06/25/17 19:54 01:17 01:31 Temperature 98.5 F Pulse Rate 101 H Respiratory 16 Rate Blood Pressure 114/70 111/64 O2 Sat by Pulse 100 96 95 Oximetry 06/25/17 06/25/17 06/25/17 01:45 02:00 02:15 Temperature Pulse Rate Respiratory Rate Blood Pressure 111/64 105/62 105/62 O2 Sat by Pulse 95 93 95 Oximetry 06/25/17 06/25/17 06/25/17 02:30 02:45 03:53 Temperature Pulse Rate Respiratory Rate Blood Pressure 118/74 105/62 113/64 O2 Sat by Pulse 96 96 96 Oximetry 06/25/17 06/25/17 06/25/17 04:00 04:15 04:30 Temperature Pulse Rate Respiratory Rate Blood Pressure 98/60 113/64 112/75 O2 Sat by Pulse 94 95 Oximetry 06/25/17 06/25/17 06/25/17 04:45 05:00 05:17 Temperature Pulse Rate Respiratory 16 Rate Blood Pressure 112/75 106/64 O2 Sat by Pulse 95 96 98 Oximetry - Reevaluation(s) Reevaluation #1: 06/25/17 04:24 Patient stated that he is feeling a lot better after the pain medicine. I discussed with patient his CT scan results and the increased size of the mass and the new metastases to the liver. Patient will follow-up with his primary care physician and his oncologist. ED Medical Decision Making - Lab Data Result diagrams: 06/24/17 20:13 06/24/17 20:13 - Radiology Data Radiology results: report reviewed Referring Physician: DRU FULTON Patient Name: MELQUIADES POTTS Date of : 1935 Sex: Male Report Date: 2017-06-25 Report Status: Finalized Findings [address] [place] [address] Cat Scan Report Signed Patient: MELQUIADES POTTS MR#: [id number] : 1935 Acct:[id number] Age/Sex: 82 / M ADM Date: 06/24/17 Loc: ED Attending Dr: Ordering Physician: DRU FULTON Date of Service: 06/25/17 Procedure(s): CT abdomen pelvis w con Accession Number(s): [id number] cc: DRU FULTON FINAL REPORT EXAM: CT ABDOMEN PELVIS W CON HISTORY: abdominal pain,RUQ,h/o hepatocellular CA COMPARISON: CT of the abdomen pelvis from August 2016. TECHNIQUE: Contiguous axial images were obtained. Additional sagittal and coronal reformatted images were obtained. Administration of IV contrast given per institution protocol. Images submitted for interpretation. FINDINGS: Interval increase in size of heterogeneous enhancing mass centered within the junction between the right and left hepatic lobes. This is compatible with progression of patient's known PET aside lower carcinoma. Dominant mass measures 12.4 x 7.9 centimeters in axial dimension on today's exam, previously 6.0 x 6.3 centimeters. There is a new enhancing nodule at the anterior margin of the left hepatic lobe measuring 1.0 x 0.8 centimeters compatible with metastatic disease within the liver. There additional smaller nodules along the periphery of the dominant mass at the junction between the right left hepatic lobes also compatible metastatic lesions. Trace fluid at the margin of the liver. Mild linear atelectasis or scarring at the lung bases. Spleen and pancreas unremarkable. Nodular thickening of adrenal glands. No calcified gallstones or biliary dilatation. Multiple bilateral renal cysts. No solid renal lesion hydronephrosis. One of the largest cyst at the lateral margin right kidney measures 6.5 x 5.0 centimeters in axial dimension. Aorta and IVC are normal in caliber. Mild to moderate calcified plaque along the aorta. Urinary bladder is distended but otherwise unremarkable. Prostate gland is unremarkable. No free fluid or lymphadenopathy in the pelvic cavity. Moderate stool in the colon. Mild wall thickening small bowel loops left mid abdomen. This is concerning for transient peristalsis versus enteritis. There are few prominent mesenteric lymph nodes left upper abdomen similar prior study likely reactive. Mild degenerative changes of the lumbar spine and diffuse osteopenia. Lumbar vertebral body heights are preserved. Partial visualization of right femoral nahid. IMPRESSION: Interval increase in size of dominant mass centered at the junction between the right and left hepatic lobes compatible progression of patient's known hepatocellular carcinoma. There are new metastatic nodules within the left and right hepatic lobes. Mild wall thickening of fluid-filled small bowel loops left upper abdomen which may relate to transient peristalsis or mild enteritis. Remaining bowel loops normal in caliber. No bowel obstruction. No other gross acute findings. Transcribed By: LMA Dictated By: TINY DEL ROSARIO MD Electronically Authenticated By: TINY DEL ROSARIO MD Signed Date/Time: 06/25/17 0000 DD/ 0000 TD/TT: 06/25/17 0000 Critical care attestation.: If time is entered above; I have spent that time in minutes in the direct care of this critically ill patient, excluding procedure time. ED Disposition Clinical Impression: Abdominal pain, Hepatocellular carcinoma Disposition: - TO HOME OR SELFCARE Is pt being admited?: No Condition: Stable Instructions: Liver Cancer (ED), Abdominal Pain (ED) Prescriptions: Ondansetron [Zofran Odt] 4 mg PO Q8HR PRN #14 tab.rapdis PRN Reason: Nausea And Vomiting oxyCODONE /ACETAMINOPHEN [Percocet 5/325] 1 tab PO Q6HR PRN #14 tablet PRN Reason: Pain Referrals: MARY ANN ELMORE MD [Primary Care Provider] - 3-5 Days
--- NOTE | 2017-06-25 04:02 | Cat Scan Report ---
FINAL REPORT EXAM: CT ABDOMEN PELVIS W CON HISTORY: abdominal pain,RUQ,h/o hepatocellular CA COMPARISON: CT of the abdomen pelvis from August 2016. TECHNIQUE: Contiguous axial images were obtained. Additional sagittal and coronal reformatted images were obtained. Administration of IV contrast given per institution protocol. Images submitted for interpretation. FINDINGS: Interval increase in size of heterogeneous enhancing mass centered within the junction between the right and left hepatic lobes. This is compatible with progression of patient's known PET aside lower carcinoma. Dominant mass measures 12.4 x 7.9 centimeters in axial dimension on today's exam, previously 6.0 x 6.3 centimeters. There is a new enhancing nodule at the anterior margin of the left hepatic lobe measuring 1.0 x 0.8 centimeters compatible with metastatic disease within the liver. There additional smaller nodules along the periphery of the dominant mass at the junction between the right left hepatic lobes also compatible metastatic lesions. Trace fluid at the margin of the liver. Mild linear atelectasis or scarring at the lung bases. Spleen and pancreas unremarkable. Nodular thickening of adrenal glands. No calcified gallstones or biliary dilatation. Multiple bilateral renal cysts. No solid renal lesion hydronephrosis. One of the largest cyst at the lateral margin right kidney measures 6.5 x 5.0 centimeters in axial dimension. Aorta and IVC are normal in caliber. Mild to moderate calcified plaque along the aorta. Urinary bladder is distended but otherwise unremarkable. Prostate gland is unremarkable. No free fluid or lymphadenopathy in the pelvic cavity. Moderate stool in the colon. Mild wall thickening small bowel loops left mid abdomen. This is concerning for transient peristalsis versus enteritis. There are few prominent mesenteric lymph nodes left upper abdomen similar prior study likely reactive. Mild degenerative changes of the lumbar spine and diffuse osteopenia. Lumbar vertebral body heights are preserved. Partial visualization of right femoral nahid. IMPRESSION: Interval increase in size of dominant mass centered at the junction between the right and left hepatic lobes compatible progression of patient's known hepatocellular carcinoma. There are new metastatic nodules within the left and right hepatic lobes. Mild wall thickening of fluid-filled small bowel loops left upper abdomen which may relate to transient peristalsis or mild enteritis. Remaining bowel loops normal in caliber. No bowel obstruction. No other gross acute findings.
[2017-06-25 05:19] VITALS: BP 106/64
== END 2017-06-25 05:30 | disposition home or self-care (01) ==
LOC: ED 17:05
DX: R10.11 Right upper quadrant pain (principal); C22.0 Liver cell carcinoma; E11.9 Type 2 diabetes mellitus without complications; K21.9 Gastro-esophageal reflux disease without esophagitis; I10 Essential (primary) hypertension; Z79.4 Long term (current) use of insulin
CPT/HCPCS: 36415; 74177; 80053; 81001; 85025; 96374; 96375; 99284; J2270; J2405; Q9967

== ENCOUNTER 2017-09-21 06:42 | Outpatient (CLI) | payer MEDICARE ==
[2017-09-21 07:37] LABS: Blood Urea Nitrogen 16 mg/dL (9-20)
[2017-09-21] MEDS ORDERED: KINEVAC IV ONE (10:37)
--- NOTE | 2017-09-21 19:46 | Cat Scan Report ---
FINAL REPORT PROCEDURE: CT CHEST W CON TECHNIQUE: Computerized axial tomography of the chest was performed during the IV injection of iodinated nonionic contrast. HISTORY: CHEST PAIN COMPARISON: No prior studies are available for comparison. TECHNICAL QUALITY: Satisfactory. FINDINGS: Heart and pericardium: No pericardial effusion or thickening. Thoracic aorta: Atherosclerotic calcification and mural plaque of the aorta. There is a small 11 millimeter focus of ulcerated plaque along the lateral arch Pulmonary vasculature: Limited evaluation due to streak artifact. No large central embolus is seen. Lymph nodes: No enlarged thoracic lymph nodes. Lungs: Mild biapical scarring. Pleural space: No effusion, thickening, or pneumothorax. Musculoskeletal structures: There is a 2 centimeter mildly expansile ground-glass density lesion in the T8 vertebral body, indeterminate etiology. Upper abdominal structures: See separate CT report. IMPRESSION: 2 centimeter ground-glass density lesion in the T8 vertebral body is indeterminate.
--- NOTE | 2017-09-21 20:37 | Cat Scan Report ---
FINAL REPORT PROCEDURE: CT ABDOMEN W CON TECHNIQUE: Computerized axial tomography of the abdomen was performed following the IV injection of iodinated nonionic contrast. HISTORY: LIVER CA / ABD PAIN COMPARISON: 06/25/2017 FINDINGS: Visualized lower thorax: See separate CT report. Liver: There is a large lobular enhancing mass predominantly in the right hepatic lobe, with central cystic or necrotic component as seen previously. The large mass is stable in size, lowering for differences in measurement technique. However adjacent enhancing nodules in the liver appear increased in size. Enhancing nodule in the left hepatic lobe is increased in size, now measuring up to 15 millimeters. There is rapid washout seen on the delayed images. Spleen: Normal size and attenuation. Gallbladder and biliary system: Normal. Pancreas: Normal. Adrenals: Normal. Kidneys: Bilateral renal cortical atrophy. Numerous bilateral renal cysts are present. GI tract: There is new wall thickening of the duodenum and proximal jejunal loops, compatible with duodenitis/enteritis. Lymph nodes and mesentery: Normal. Vasculature: Atherosclerotic calcification. Peritoneum: No free fluid. Musculoskeletal structures: No significant abnormality. Other: None . IMPRESSION: Large enhancing hepatic mass. Multiple enhancing nodules surrounding the main mass have increased in size. There is abnormal wall thickening of the duodenum and proximal jejunal loops, compatible with duodenitis/enteritis, of uncertain etiology
== END 2017-09-21 06:43 | disposition home or self-care (01) ==
LOC: CT 06:42
DX: C22.9 Malignant neoplasm of liver, not specified as primary or secondary (principal); N28.1 Cyst of kidney, acquired; N26.1 Atrophy of kidney (terminal); J98.4 Other disorders of lung; K76.89 Other specified diseases of liver; I70.90 Unspecified atherosclerosis; I70.0 Atherosclerosis of aorta; M89.9 Disorder of bone, unspecified; R07.9 Chest pain, unspecified
CPT/HCPCS: 36415; 71260; 74160; 82565; 84520; J2805; Q9967